=== PATIENT | female | born 1930 | race African-American/Black ===

== ENCOUNTER → 2021-09-29 | Day surgery (SDC) | payer MEDICARE, MEDICAID ==
[~2021-09-29] MED LIST: ATROPINE SULFATE 1MG/10ML SYR IV PRN; ESOM40CA PO; FENTANYL CITRATE/PF 50MCG/ML 2ML VIAL ONE; FENTANYL CITRATE/PF 50MCG/ML 5ML VIAL ONE; HEPARIN 1000 UNITS/ML 10ML ONE; IODIXANOL 320MG/ML 100 ML BOTTLE IV ONE; LIDOCAINE HCL 1% 10 MG/ML 10ML VIAL ONE; LISI-186 PO; MECL-159 MT; MIDAZOLAM HCL 2 MG/2 ML VIAL ONE; MIDAZOLAM HCL 5 MG/5 ML VIAL ONE; NIFE90TA2 PO; ONDANSETRON HCL 4MG/2ML INJ IV PRN
== END | disposition home or self-care (01) ==
LOC: CCL 08:16
PROVIDERS: ATTEND Specialist
DX: I35.0 Nonrheumatic aortic (valve) stenosis (principal); I10 Essential (primary) hypertension; I77.9 Disorder of arteries and arterioles, unspecified; D63.8 Anemia in other chronic diseases classified elsewhere; Z79.899 Other long term (current) drug therapy; Z98.890 Other specified postprocedural states
CPT/HCPCS: 93005; 93458; C1769; C1887; C1893; J1644; J2250; J3010; J3490; Q9967; 99152; G0500

== ENCOUNTER 2022-02-14 09:55 | Emergency (ER) | payer MEDICARE, MEDICAID ==
[~2022-02-14] VITALS: Ht 162.6 cm; Wt 75.0 kg
[~2022-02-14 09:55] MED LIST changes: -ATROPINE SULFATE 1MG/10ML SYR IV PRN; -FENTANYL CITRATE/PF 50MCG/ML 2ML VIAL ONE; -FENTANYL CITRATE/PF 50MCG/ML 5ML VIAL ONE; -HEPARIN 1000 UNITS/ML 10ML ONE; -IODIXANOL 320MG/ML 100 ML BOTTLE IV ONE; -LIDOCAINE HCL 1% 10 MG/ML 10ML VIAL ONE; -MIDAZOLAM HCL 2 MG/2 ML VIAL ONE; -MIDAZOLAM HCL 5 MG/5 ML VIAL ONE; -ONDANSETRON HCL 4MG/2ML INJ IV PRN
[2022-02-14 10:43] LABS: BASOPHILS % 1.2 % (0.0-2.0); EOSINOPHILS % 0.5 % (0.0-5.0); HEMATOCRIT. 34.4 % (36.0-48.0); HEMOGLOBIN. 11.6 g/dL (12.0-16.0); LYMPHOCYTES % 18.8 % (20.0-50.0); MEAN CORPUSCULAR HEMOGLOBIN 30.5 pg (28.0-32.0); MEAN CORPUSCULAR VOLUME 90.6 fL (81.0-99.0); MEAN PLATELET VOLUME 7.7 fl (7.4-10.4); NEUTROPHILS % 75.5 % (40.0-76.0); PLATELET 110 x1000/uL (130-400); RED CELL DISTRIBUTION WIDTH 13.7 % (11.6-14.6)
[2022-02-14 10:45] LABS: CHLORIDE 106 mEq/L (98-107)
[2022-02-14] MEDS ORDERED: MECLIZINE 25MG TABLET PO ONE (12:15)
[2022-02-14 13:36] VITALS: BP 170/66
== END 2022-02-14 13:54 | disposition home or self-care (01) ==
LOC: ER 09:55
DX: R42 Dizziness and giddiness (principal); I10 Essential (primary) hypertension; I25.10 Atherosclerotic heart disease of native coronary artery without angina pectoris; I25.2 Old myocardial infarction; K21.9 Gastro-esophageal reflux disease without esophagitis; Z95.5 Presence of coronary angioplasty implant and graft
CPT/HCPCS: 36415; 71045; 80053; 83880; 84484; 85025; 93005; 99285; J8597

== ENCOUNTER → 2022-07-26 | Day surgery (SDC) | payer MEDICARE, MEDICAID ==
[~2022-07-26] VITALS: Ht 162.6 cm; Wt 74.4 kg
[~2022-07-26] MED LIST changes: +BALANCED SALT IRRIG SOLN 15ML ONE; +BALANCED SALT IRRIG SOLN COMB1 500ML OP NR; +CIPROFLOXACIN 0.3% OPHTH SOLN 2.5ML ONE; +CYCLOPENTOLATE HCL 1% OPHTH DROPS 2ML ONE; +FENTANYL CITRATE/PF 50MCG/ML 2ML VIAL ONE; +HYALURONATE SODIUM 10 MG/ML 0.55ML SYRINGE IO ONE; +LACTATED RINGERS 1,000 ML IV SCH; +LIDOCAINE HCL/PF 2% 20 MG/ML 10ML VIAL ONE; +MIDAZOLAM HCL 2 MG/2 ML VIAL ONE; +NEO/POLYMYX B SULF/DEXAMETH OPHTH OINT 3.5GM ONE; +PHENYLEPHRINE HCL 10% OPHTH DROPS 5ML ONE; +PRED5TAB PO; +PREDNISOLONE ACETATE 1% OPHTH DROPS 5ML ONE; +TROPICAMIDE 1% OPHTH DROPS 15ML ONE; +TRYPAN BLUE 0.5 ML DISP.SYRIN IO ONE
[2022-07-26 08:25] LABS: BASOPHILS % 0.4 % (0.0-2.0); EOSINOPHILS % 0.4 % (0.0-5.0); HEMATOCRIT. 35.7 % (36.0-48.0); HEMOGLOBIN. 11.6 g/dL (12.0-16.0); LYMPHOCYTES % 32.9 % (20.0-50.0); MEAN CORPUSCULAR HEMOGLOBIN 30.1 pg (28.0-32.0); MEAN CORPUSCULAR VOLUME 92.7 fL (81.0-99.0); MEAN PLATELET VOLUME 6.9 fl (7.4-10.4); MONOCYTES % 7.9 % (2.0-8.0); NEUTROPHILS % 58.4 % (40.0-76.0); PLATELET 239 x1000/uL (130-400); RED BLOOD CELL COUNT 3.85 mill/uL (4.2-5.4); RED CELL DISTRIBUTION WIDTH 14.7 % (11.6-14.6)
== END | disposition home or self-care (01) ==
LOC: OR 07:09
PROVIDERS: ATTEND Ophthalmology
DX: H25.22 Age-related cataract, morgagnian type, left eye (principal); I10 Essential (primary) hypertension; I25.10 Atherosclerotic heart disease of native coronary artery without angina pectoris; Z79.899 Other long term (current) drug therapy; Z98.890 Other specified postprocedural states; Z88.0 Allergy status to penicillin; Z20.822 Contact with and (suspected) exposure to COVID-19
CPT/HCPCS: 36415; 66984; 85025; 87426; C1893; C9803; J2250; J3010; J3490; Q9957; V2632